=== PATIENT | female | born 2000 | race Hispanic/Latino ===

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

== ENCOUNTER 2021-03-04 22:25 | Emergency (ER) | payer SELFPAY ==
[2021-03-04] MEDS ORDERED: LIDOCAINE 1% MPF 5 ML VIAL ONE (23:25)
[2021-03-04] MEDS ORDERED: TETANUS & DIPHTHERIA TOX,ADULT 0.5 ML VIAL ONE (23:26)
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
[2021-03-05 02:14] VITALS: BP 132/92; TEMP 97.9; O2SAT 100
== END 2021-03-05 00:51 | disposition home or self-care (01) ==
LOC: ER 22:25
PROC: 0JQJ0ZZ Repair Right Hand Subcutaneous Tissue and Fascia, Open Approach (ICD-10-PCS; principal; 2021-03-05)
DX: S61.411A Laceration without foreign body of right hand, initial encounter (principal); S61.011A Laceration without foreign body of right thumb without damage to nail, initial encounter; W25.XXXA Contact with sharp glass, initial encounter; Y92.009 Unspecified place in unspecified non-institutional (private) residence as the place of occurrence of the external cause; Z23 Encounter for immunization
CPT/HCPCS: 90471; 90714; 99282

== ENCOUNTER 2023-08-25 15:48 | Emergency (ER) | payer SELFPAY ==
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
[2023-08-25] MEDS ORDERED: HYDROCODONE/APAP 5/325 MG TAB ONE (19:49)
[2023-08-25] MEDS ORDERED: IBUPROFEN 400 MG TAB ONE (19:49)
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
[2023-08-25 23:29] VITALS: BP 128/86; TEMP 97.3; O2SAT 99
== END 2023-08-25 20:21 | disposition home or self-care (01) ==
LOC: ER 15:48
DX: S62.646A Nondisplaced fracture of proximal phalanx of right little finger, initial encounter for closed fracture (principal); V43.52XA Car driver injured in collision with other type car in traffic accident, initial encounter; Y93.89 Activity, other specified; Y92.410 Unspecified street and highway as the place of occurrence of the external cause
CPT/HCPCS: 99283